=== PATIENT | female | born 1935 | race Caucasian/White ===

== ENCOUNTER → 2016-08-12 | Outpatient (CLI) | payer MEDICARE, BC ==
[~2016-08-12] MED LIST: ASCORBIC ACID500 M1 PO; CALCIUM 500 +1 EAC4 PO; COLACE10 MG/ML PO; COQ-10100 MG PO; DAILY VITE1 EAC1 PO; ENDOCET 5-3251 EACH PO; FIBER THERAPY0.52 GM PO; FIBERCON625 MG PO; FISH OIL 1,2001 EAC4 PO; FOSAMAX70 MG PO; GLUCOSAMINE-CH1 EA30 PO; HYDROCHLOROTHIA25 MG PO; K-DUR20 MEQ PO; LECITHIN-191200 MG PO; LO-DOSE ASPIRIN81 M2 PO; PHILLIPS' LAXA100 MG PO; TIZANIDINE HCL4 MG PO; TRAZODONE HCL50 MG PO; VITAMIN B122500 MCG PO; VITAMIN D31000 UNI2 PO; XANAX0.25 MG PO; ZINC50 M2 PO
== END | disposition home or self-care (01) ==
LOC: CDC 09:02
DX: I44.4 Left anterior fascicular block (principal); I51.7 Cardiomegaly; R94.31 Abnormal electrocardiogram [ECG] [EKG]; M43.16 Spondylolisthesis, lumbar region; M54.16 Radiculopathy, lumbar region
CPT/HCPCS: 93000

== ENCOUNTER 2016-08-13 13:02 | Inpatient (IN) | payer OTHER, BC ==
[~2016-08-13] VITALS: Ht 157.5 cm; Wt 59.9 kg
[~2016-08-13 13:02] MED LIST changes: -COLACE10 MG/ML PO; -PHILLIPS' LAXA100 MG PO
[2016-08-13] MEDS ORDERED: COLACE10 MG/ML PO (13:33)
[2016-08-13 13:35] VITALS: BP 147/68
[2016-08-13] MEDS ORDERED: PHILLIPS' LAXA100 MG PO (13:35)
[2016-08-13 22:00] VITALS: BP 170/78
[2016-08-14] VITALS (9 sets, daily range): BP systolic 111–163; BP diastolic 54–71
[2016-08-15 07:57] VITALS: BP 159/68
[2016-08-15 15:10] VITALS: BP 124/61
[2016-08-15 16:00] VITALS: BP 124/61
[2016-08-15] MEDS ORDERED: ENDOCET 5-3251 EACH PO (16:37)
[2016-08-15] MEDS ORDERED: TIZANIDINE HCL4 MG PO (16:37)
[2016-08-15 23:30] VITALS: BP 157/72
[2016-08-16 07:54] VITALS: BP 149/70
[2016-08-16 15:23] VITALS: BP 131/58
== END 2016-08-16 16:57 | DRG 460 ==
LOC: SDC 13:02 → 3EAST 20:48 → 2SOUTH 20:48 → 3EAST 21:55
DX: M43.16 Spondylolisthesis, lumbar region (principal); M51.16 Intervertebral disc disorders with radiculopathy, lumbar region; M48.06 Spinal stenosis, lumbar region; I10 Essential (primary) hypertension; E78.5 Hyperlipidemia, unspecified; M81.0 Age-related osteoporosis without current pathological fracture; F41.9 Anxiety disorder, unspecified; Z85.840 Personal history of malignant neoplasm of eye
CPT/HCPCS: 36415; 71010; 72100; 76000; 80048; 85025; 86850; 86900; 86901; 93000; 97530 GP; J0131; J0690; J1100; J1170; J1580; J2405; J2710; J2930; J3010; J3370; J3480; S0020

== ENCOUNTER 2017-06-11 13:15 | Emergency (ER) | payer OTHER, BC ==
[~2017-06-11] VITALS: Ht 157.5 cm; Wt 55.8 kg
[~2017-06-11 13:15] MED LIST changes: +COLACE10 MG/ML PO; +PHILLIPS' LAXA100 MG PO
[2017-06-11 14:19] LABS: HEMATOCRIT 37.1 % (36.0-46.0); HEMOGLOBIN 12.7 G/DL (11.9-15.5); MCHC 34.2 G/DL (30.0-36.0); MCV 84.7 FL (83-99); PLATELET COUNT 232 K/uL (156-360); RBC DIS.WIDTH-CV 12.2 % (11.8-14.6); RBC DIS.WIDTH-SD 37.3 % (39-53); RED BLOOD COUNT 4.38 M/uL (3.80-5.20); WHITE BLOOD COUNT 15.1 K/uL (4.1-10.2)
[2017-06-11 14:29] LABS: ALBUMIN 3.9 g/dL (3.2-4.8); CHLORIDE 99 mEq/L (99-109); POTASSIUM 3.4 mEq/L (3.7-5.4); SODIUM 134 mEq/L (136-147)
[2017-06-11 14:31] LABS: GLUCOSE 114 mg/dL (70-99)
[2017-06-11 14:32] LABS: TOTAL PROTEIN 7.1 g/dL (6.4-8.3)
[2017-06-11 14:33] LABS: TOTAL BILIRUBIN 0.9 mg/dL (0.0-1.0)
[2017-06-11 14:35] LABS: ALKALINE PHOSPHATASE 55 IU/L (3-129); GFR ESTIMATE (CALCULATED) 57 mL/min/
[2017-06-11 14:36] LABS: UREA NITROGEN (BUN) 22 mg/dL (9-23)
[2017-06-11 14:37] LABS: AST (GOT) 19 IU/L (2-34)
[2017-06-11 14:38] LABS: ALT (GPT) 14 IU/L (3-49)
[2017-06-11 16:40] LABS: LIPASE 26 U/L (1.0-51.0)
[2017-06-11 20:04] LABS: APPEARANCE CLEAR ((CLEAR)); BILIRUBIN NEGATIVE; BLOOD SMALL; COLOR STRAW ((YELLOW)); GLUCOSE (STRIP) 50; KETONES 20; LEUKOCYTES NEGATIVE; NITRITE NEGATIVE; PROTEIN (STRIP) 30; UROBILINOGEN 0.2 MG/DL (0.2-1.0)
[2017-06-11 20:08] LABS: BACTERIA NONE SEEN /HPF; EPITHELIAL CELLS RARE /HPF; MUCUS NONE SEEN /LPF; UCUL ADDED? NO; WHITE BLOOD CELLS 0-5 /HPF (0-5)
[2017-06-11 20:18] LABS: SPECIFIC GRAVITY 1.065 (1.000-1.030)
[2017-06-11] MEDS ORDERED: PERCOCET 5/31 TABLET PO (21:44)
[2017-06-11 23:00] VITALS: BP 184/92
== END 2017-06-11 23:00 | disposition home or self-care (01) ==
LOC: EME 13:15
DX: S32.000A Wedge compression fracture of unspecified lumbar vertebra, initial encounter for closed fracture (principal); R10.11 Right upper quadrant pain; W17.89XA Other fall from one level to another, initial encounter; Y93.89 Activity, other specified; I10 Essential (primary) hypertension; Z85.820 Personal history of malignant melanoma of skin; Z98.1 Arthrodesis status; Z88.5 Allergy status to narcotic agent; Z88.8 Allergy status to other drugs, medicaments and biological substances
CPT/HCPCS: 72128; 72132; 74177; 80053; 81003; 83690; 85027; 93005; 99281; 99285

== ENCOUNTER 2017-07-23 17:07 | Inpatient (IN) | payer OTHER, BC ==
[~2017-07-23] VITALS: Ht 157.5 cm; Wt 51.0 kg
[~2017-07-23 17:07] MED LIST changes: +CO Q-10200 MG PO; -COQ-10100 MG PO; +CYANOCOBALAM1000 MCG PO; +PERCOCET 5/31 TABLET PO; -VITAMIN B122500 MCG PO
[2017-07-23 19:12] LABS: HEMATOCRIT 38.9 % (36.0-46.0); HEMOGLOBIN 13.4 G/DL (11.9-15.5); MCH 28.9 PG (29.0-34.0); MCHC 34.4 G/DL (30.0-36.0); MCV 83.8 FL (83-99); PLATELET COUNT 303 K/uL (156-360); RBC DIS.WIDTH-CV 12.4 % (11.8-14.6); RBC DIS.WIDTH-SD 37.8 % (39-53); RED BLOOD COUNT 4.64 M/uL (3.80-5.20); WHITE BLOOD COUNT 11.2 K/uL (4.1-10.2)
[2017-07-23] MEDS ORDERED: PERCOCET 5/31 TABLET PO (19:16)
[2017-07-23] MEDS ORDERED: EXCEDRIN EXTRA1 EACH PO (19:19)
[2017-07-23] MEDS ORDERED: MOVANTIK12.5 MG PO (19:23)
[2017-07-23] MEDS ORDERED: FLUOXETINE HCL40 MG PO (19:23)
[2017-07-23] MEDS ORDERED: LISINOPRIL10 MG PO (19:23)
[2017-07-23] MEDS ORDERED: LIDODERM 5% P1 PATCH TD (19:23)
[2017-07-23 19:28] LABS: ALBUMIN 3.7 g/dL (3.2-4.8); CHLORIDE 90 mEq/L (99-109); POTASSIUM 3.4 mEq/L (3.7-5.4); SODIUM 133 mEq/L (136-147)
[2017-07-23 19:30] LABS: GLUCOSE 115 mg/dL (70-99)
[2017-07-23 19:31] LABS: TOTAL PROTEIN 6.6 g/dL (6.4-8.3)
[2017-07-23 19:32] LABS: TOTAL BILIRUBIN 0.5 mg/dL (0.0-1.0)
[2017-07-23 19:34] LABS: ALKALINE PHOSPHATASE 62 IU/L (3-129); CREATININE 0.7 mg/dL (0.6-1.3); GFR ESTIMATE (CALCULATED) > 59 mL/min/
[2017-07-23 19:35] LABS: UREA NITROGEN (BUN) 14 mg/dL (9-23)
[2017-07-23 19:36] LABS: AST (GOT) 15 IU/L (2-34)
[2017-07-23 19:37] LABS: ALT (GPT) 13 IU/L (3-49); CREATINE KINASE 32 IU/L (1-294)
[2017-07-23 19:46] LABS: TROP-I INTERPRETATION NEGATIVE; TROPONIN-I 0.02 ng/mL (0.0-0.30)
[2017-07-23 22:46] LABS: SERUM ETHYL ALCOHOL < 10 mg/dL
[2017-07-23 23:34] LABS: APPEARANCE CLOUDY ((CLEAR)); BILIRUBIN NEGATIVE; BLOOD NEGATIVE; COLOR YELLOW ((YELLOW)); GLUCOSE (STRIP) NEGATIVE; KETONES 5; LEUKOCYTES NEGATIVE; NITRITE NEGATIVE; PROTEIN (STRIP) 30; SPECIFIC GRAVITY 1.017 (1.000-1.030); UROBILINOGEN 0.2 MG/DL (0.2-1.0)
[2017-07-24] VITALS (12 sets, daily range): BP systolic 129–238; BP diastolic 68–111
[2017-07-24 00:50] LABS: BENZODIAZEPINES, URINE SCREEN Negative (200 ng/mL)
[2017-07-24 03:05] LABS: AMORPHOUS URATES CRYSTALS 3+; BACTERIA RARE /HPF; EPITHELIAL CELLS RARE /HPF; MUCUS NONE SEEN /LPF; RED BLOOD CELLS 0-5 /HPF (0-5); WHITE BLOOD CELLS 0-5 /HPF (0-5)
[2017-07-24 06:21] LABS: HDL CHOLESTEROL 48 MG/DL (Desirable>=50); LDL CHOLESTEROL 111 mg/dL (Desirable<100); NON-HDL CHOLESTEROL 132 mg/dL (Desirable<160); TOTAL CHOLESTEROL 180 mg/dL (Desirable<200); TRIGLYCERIDES 107 MG/DL (Normal: <150)
[2017-07-24 10:34] LABS: HEMOGLOBIN A1c (GLYCOHEMOGLOB) 5.6 % (Below 5.7)
[2017-07-25 00:05] VITALS: BP 139/84
[2017-07-25 05:06] VITALS: BP 160/71
[2017-07-25 07:33] VITALS: BP 156/75
[2017-07-25 11:30] VITALS: BP 108/53
[2017-07-25 11:45] LABS: HEMATOCRIT 36.9 % (36.0-46.0); HEMOGLOBIN 12.9 G/DL (11.9-15.5); MCH 29.3 PG (29.0-34.0); MCV 83.7 FL (83-99); PLATELET COUNT 320 K/uL (156-360); RBC DIS.WIDTH-CV 12.6 % (11.8-14.6); RBC DIS.WIDTH-SD 38.4 % (39-53); RED BLOOD COUNT 4.41 M/uL (3.80-5.20); WHITE BLOOD COUNT 20.3 K/uL (4.1-10.2)
[2017-07-25 12:11] LABS: CHLORIDE 93 MEQ/L (99-109); CREATININE 0.6 MG/DL (0.6-1.3); GFR ESTIMATE (CALCULATED) > 59 mL/min/; GLUCOSE 127 mg/dL (70-99); POTASSIUM 3.4 MEQ/L (3.7-5.4); SODIUM 131 MEQ/L (136-147); UREA NITROGEN (BUN) 16 mg/dL (9-23)
[2017-07-25 15:39] VITALS: BP 169/76
[2017-07-26 00:21] VITALS: BP 162/80
[2017-07-26 07:22] LABS: HEMATOCRIT 38.2 % (36.0-46.0); HEMOGLOBIN 12.9 G/DL (11.9-15.5); MCH 29.2 PG (29.0-34.0); MCHC 33.8 G/DL (30.0-36.0); MCV 86.4 FL (83-99); PLATELET COUNT 271 K/uL (156-360); RBC DIS.WIDTH-CV 12.7 % (11.8-14.6); RBC DIS.WIDTH-SD 39.8 % (39-53); RED BLOOD COUNT 4.42 M/uL (3.80-5.20)
[2017-07-26 07:49] LABS: CHLORIDE 95 MEQ/L (99-109); CREATININE 0.4 MG/DL (0.6-1.3); GFR ESTIMATE (CALCULATED) > 59 mL/min/; GLUCOSE 114 mg/dL (70-99); POTASSIUM 3.3 MEQ/L (3.7-5.4); SODIUM 132 MEQ/L (136-147); UREA NITROGEN (BUN) 9 mg/dL (9-23)
[2017-07-26 07:56] VITALS: BP 173/80
[2017-07-26 16:20] VITALS: BP 183/86
[2017-07-27] VITALS: BP 174/92
[2017-07-27 05:52] LABS: BASOPHIL (%) 0.3 % (0-1); BASOPHIL COUNT 0.1 K/uL (0-0.1); EOSINOPHIL (%) 0.1 % (0-5); HEMATOCRIT 38.4 % (36.0-46.0); HEMOGLOBIN 12.9 G/DL (11.9-15.5); IMMATURE GRANULOCYTE (%) 0.7 % (0.0-0.7); LYMPHOCYTE (%) 8.4 % (15-42); LYMPHOCYTE COUNT 1.3 K/uL (1.0-2.8); MCH 28.1 PG (29.0-34.0); MCHC 33.6 G/DL (30.0-36.0); MCV 83.7 FL (83-99); MONOCYTE (%) 7.5 % (3-12); MONOCYTE COUNT 1.2 K/uL (0-0.8); NEUTROPHIL COUNT 13.2 K/uL (1.8-6.4); PLATELET COUNT 290 K/uL (156-360); RBC DIS.WIDTH-CV 12.6 % (11.8-14.6); RBC DIS.WIDTH-SD 38.1 % (39-53); RED BLOOD COUNT 4.59 M/uL (3.80-5.20); WHITE BLOOD COUNT 15.9 K/uL (4.1-10.2)
[2017-07-27 06:28] LABS: CHLORIDE 96 MEQ/L (99-109); CREATININE 0.5 MG/DL (0.6-1.3); GFR ESTIMATE (CALCULATED) > 59 mL/min/; GLUCOSE 111 mg/dL (70-99); MAGNESIUM 1.9 mg/dl (1.3-2.7); POTASSIUM 3.9 MEQ/L (3.7-5.4); SODIUM 132 MEQ/L (136-147); UREA NITROGEN (BUN) 13 mg/dL (9-23)
[2017-07-27 07:49] VITALS: BP 136/74
[2017-07-27 15:50] VITALS: BP 140/72
[2017-07-28 00:01] VITALS: BP 138/77
[2017-07-28 08:16] VITALS: BP 174/83
[2017-07-28 09:33] LABS: BASOPHIL (%) 0.4 % (0-1); BASOPHIL COUNT 0.1 K/uL (0-0.1); EOSINOPHIL (%) 0.1 % (0-5); HEMATOCRIT 38.6 % (36.0-46.0); HEMOGLOBIN 12.7 G/DL (11.9-15.5); IMMATURE GRANULOCYTE (%) 0.8 % (0.0-0.7); LYMPHOCYTE (%) 6.7 % (15-42); LYMPHOCYTE COUNT 0.8 K/uL (1.0-2.8); MCH 27.9 PG (29.0-34.0); MCHC 32.9 G/DL (30.0-36.0); MCV 84.8 FL (83-99); MONOCYTE (%) 5.3 % (3-12); MONOCYTE COUNT 0.7 K/uL (0-0.8); NEUTROPHIL (%) 86.7 % (45-76); NEUTROPHIL COUNT 10.8 K/uL (1.8-6.4); PLATELET COUNT 322 K/uL (156-360); RBC DIS.WIDTH-SD 39.9 % (39-53); RED BLOOD COUNT 4.55 M/uL (3.80-5.20); WHITE BLOOD COUNT 12.4 K/uL (4.1-10.2)
[2017-07-28 09:58] LABS: CHLORIDE 98 MEQ/L (99-109); CREATININE 0.5 MG/DL (0.6-1.3); GFR ESTIMATE (CALCULATED) > 59 mL/min/; GLUCOSE 158 mg/dL (70-99); MAGNESIUM 1.9 mg/dl (1.3-2.7); POTASSIUM 4.2 MEQ/L (3.7-5.4); SODIUM 134 MEQ/L (136-147); UREA NITROGEN (BUN) 22 mg/dL (9-23)
[2017-07-28 12:05] VITALS: BP 158/72
[2017-07-28 16:00] VITALS: BP 160/70
[2017-07-28 23:51] VITALS: BP 131/65
[2017-07-29 07:21] VITALS: BP 144/79
[2017-07-29] MEDS ORDERED: NIFEDIPINE10 MG PO (11:54)
[2017-07-29] MEDS ORDERED: LISINOPRIL40 MG PO (11:54)
[2017-07-29] MEDS ORDERED: ASPIRIN EC325 MG PO (11:55)
[2017-07-29] MEDS ORDERED: ALPRAZOLAM0.25 M2 PO (11:56)
[2017-07-29 16:04] VITALS: BP 154/77
[2017-07-29 23:22] LABS: ALBUMIN 3.6 g/dL (3.2-4.8)
[2017-07-29 23:27] LABS: ALKALINE PHOSPHATASE 64 IU/L (3-129)
[2017-07-29 23:30] LABS: DIRECT BILIRUBIN 0.2 mg/dL (0.0-0.3)
[2017-07-29 23:31] LABS: LIPASE 72 U/L (1.0-51.0)
[2017-07-29 23:39] LABS: ALT (GPT) 57 IU/L (3-49); AST (GOT) 44 IU/L (2-34); TOTAL BILIRUBIN 0.3 mg/dL (0.0-1.0)
[2017-07-30] VITALS: BP 133/73
[2017-07-30 08:16] VITALS: BP 165/77
[2017-07-30 11:48] VITALS: BP 128/68
== END 2017-07-30 15:20 | DRG 92 ==
LOC: EME 17:07 → EDOF 21:18 → 5WEST 21:18 → 4EAST 21:18 → EDOF 21:18 → ENRESERV 21:24 → 5WEST 23:29 → ENRESERV 07-24 00:40 → 5WEST 07-24 00:41 → ENRESERV 07-24 00:51 → 4EAST 07-24 01:06 → 5SOUTH 07-25 11:47 → 4EAST 07-25 11:47 → ENRESERV 07-25 13:46 → 5SOUTH 07-25 15:21
PROVIDERS: Emergency Medicine; Family Medicine; Hospitalist; Physician Assistant; Physician Assistant Medical
DX: G92 Toxic encephalopathy (principal); T50.905A Adverse effect of unspecified drugs, medicaments and biological substances, initial encounter; J90 Pleural effusion, not elsewhere classified; E86.0 Dehydration; M25.551 Pain in right hip; G20 Parkinson's disease; R47.02 Dysphasia; E87.8 Other disorders of electrolyte and fluid balance, not elsewhere classified; R47.1 Dysarthria and anarthria; K21.9 Gastro-esophageal reflux disease without esophagitis; R29.6 Repeated falls; R68.2 Dry mouth, unspecified; I10 Essential (primary) hypertension; E78.5 Hyperlipidemia, unspecified; M54.5 Low back pain; M16.11 Unilateral primary osteoarthritis, right hip; G89.29 Other chronic pain; R13.10 Dysphagia, unspecified; R26.81 Unsteadiness on feet; E87.1 Hypo-osmolality and hyponatremia; R09.02 Hypoxemia; E87.6 Hypokalemia; R53.83 Other fatigue; F01.50 Vascular dementia, unspecified severity, without behavioral disturbance, psychotic disturbance, mood disturbance, and anxiety; K56.41 Fecal impaction; D72.829 Elevated white blood cell count, unspecified; H46.8 Other optic neuritis; M81.0 Age-related osteoporosis without current pathological fracture; R41.9 Unspecified symptoms and signs involving cognitive functions and awareness; R29.703 NIHSS score 3; Z79.83 Long term (current) use of bisphosphonates; Z79.899 Other long term (current) drug therapy; Z90.710 Acquired absence of both cervix and uterus; Z91.81 History of falling; Z86.010 Personal history of colon polyps
CPT/HCPCS: 70450; 70490; 70551; 71046; 73502; 74018; 74176; 80048; 80053; 80061; 80076; 80306 90; 81003; 82550; 82948; 83036; 83605; 83690; 83735; 84484; 85025; 85027; 87040; 92610 GN; 93005; 94799; 95819; 97530 GO; 97530 GP; 99281; 99285; G0378; G0480; G8978 GP CM; G8979 CJ; G8987 CK; G8988 GO CJ; G8996 GN CJ; G9161 GN CH; J0360; J1644; J2310; J7030; J7040

== ENCOUNTER 2017-08-27 07:16 | Inpatient (IN) | payer OTHER, BC ==
[~2017-08-27] VITALS: Ht 157.5 cm; Wt 69.1 kg
[2017-08-27] VITALS (14 sets, daily range): BP systolic 60–169; BP diastolic 30–75
[~2017-08-27 07:16] MED LIST changes: +ALPRAZOLAM0.25 M2 PO; +ASPIRIN EC325 MG PO; +EXCEDRIN EXTRA1 EACH PO; +FLUOXETINE HCL40 MG PO; +LIDODERM 5% P1 PATCH TD; +LISINOPRIL10 MG PO; +LISINOPRIL40 MG PO; +MOVANTIK12.5 MG PO; +NIFEDIPINE10 MG PO
[2017-08-27 07:34] LABS: BASOPHIL (%) 0.3 % (0-1); BASOPHIL COUNT 0.1 K/uL (0-0.1); EOSINOPHIL (%) 0 % (0-5); HEMATOCRIT 34.4 % (36.0-46.0); HEMOGLOBIN 11.7 G/DL (11.9-15.5); LYMPHOCYTE COUNT 0.3 K/uL (1.0-2.8); MCH 29.2 PG (29.0-34.0); MCV 85.8 FL (83-99); MONOCYTE (%) 4.4 % (3-12); MONOCYTE COUNT 0.7 K/uL (0-0.8); NEUTROPHIL (%) 92.3 % (45-76); NEUTROPHIL COUNT 15.5 K/uL (1.8-6.4); PLATELET COUNT 261 K/uL (156-360); RBC DIS.WIDTH-CV 12.7 % (11.8-14.6); RBC DIS.WIDTH-SD 39.8 % (39-53); RED BLOOD COUNT 4.01 M/uL (3.80-5.20); WHITE BLOOD COUNT 16.8 K/uL (4.1-10.2)
[2017-08-27 07:41] LABS: PTT 23.5 SEC (25-37)
[2017-08-27 07:45] LABS: ALBUMIN 3.7 g/dL (3.2-4.8); CHLORIDE 101 mEq/L (99-109); POTASSIUM 3.2 mEq/L (3.7-5.4); SODIUM 140 mEq/L (136-147)
[2017-08-27 07:47] LABS: GLUCOSE 138 mg/dL (70-99); TOTAL PROTEIN 6.4 g/dL (6.4-8.3)
[2017-08-27 07:49] LABS: TOTAL BILIRUBIN 0.4 mg/dL (0.0-1.0)
[2017-08-27 07:51] LABS: ALKALINE PHOSPHATASE 57 IU/L (3-129); CREATININE 0.8 mg/dL (0.6-1.3); GFR ESTIMATE (CALCULATED) > 59 mL/min/
[2017-08-27 07:52] LABS: AST (GOT) 22 IU/L (2-34); TROP-I INTERPRETATION NEGATIVE; TROPONIN-I 0.04 ng/mL (0.0-0.30); UREA NITROGEN (BUN) 28 mg/dL (9-23)
[2017-08-27 07:54] LABS: ALT (GPT) 15 IU/L (3-49)
[2017-08-27 07:57] LABS: BASE EXCESS 6.8 mEq/L (-3 to +3); BICARBONATE 30.3 mEq/L (22-26); CARBOXY HGB 1.4 % (0-5); METHEMOGLOBIN 1.3 % (0-1.5); PCO2 38 mm Hg (35-45); PO2 284 mm Hg (80-100); pH 7.51 (7.35-7.45)
[2017-08-27 07:59] LABS: COMMENTS - BLOOD GASES A+C+; DEVICE VENT; FI02 70 %; MECHANICAL RATE 18 resp/min; MODE ACVC; PEEP 7 CM/H20; SITE RR; TIDAL VOLUME 400 ML; TOTAL RESP RATE 19 resp/min
[2017-08-27] MEDS ORDERED: TYLENOL REGULA325 MG PO (09:44)
[2017-08-27] MEDS ORDERED: XANAX0.25 MG PO (09:45)
[2017-08-27] MEDS ORDERED: PROMETHAZINE HC25 M1 PO (09:47)
[2017-08-27] MEDS ORDERED: FIBER TABS625 MG PO (09:49)
[2017-08-27] MEDS ORDERED: SINEMET 25-1001 EACH PO (09:51)
[2017-08-27] MEDS ORDERED: PROCARDIA20 MG PO (09:54)
[2017-08-27] MEDS ORDERED: PROCARDIA10 MG PO (09:54)
[2017-08-27] MEDS ORDERED: ZESTRIL10 MG PO (09:56)
[2017-08-27] MEDS ORDERED: MIRALAX17 GM PO (09:56)
[2017-08-27 18:11] LABS: BASOPHIL (%) 0.1 % (0-1); EOSINOPHIL (%) 0 % (0-5); HEMATOCRIT 27.1 % (36.0-46.0); IMMATURE GRANULOCYTE (%) 0.8 % (0.0-0.7); LYMPHOCYTE (%) 3.3 % (15-42); LYMPHOCYTE COUNT 0.5 K/uL (1.0-2.8); MCH 29.2 PG (29.0-34.0); MCHC 33.2 G/DL (30.0-36.0); MONOCYTE (%) 9.2 % (3-12); MONOCYTE COUNT 1.5 K/uL (0-0.8); NEUTROPHIL (%) 86.6 % (45-76); NEUTROPHIL COUNT 14.2 K/uL (1.8-6.4); PLATELET COUNT 206 K/uL (156-360); RBC DIS.WIDTH-CV 13.2 % (11.8-14.6); RBC DIS.WIDTH-SD 42.3 % (39-53); RED BLOOD COUNT 3.08 M/uL (3.80-5.20); WHITE BLOOD COUNT 16.4 K/uL (4.1-10.2)
[2017-08-27 18:11] LABS: TROP-I INTERPRETATION NEGATIVE; TROPONIN-I 0.21 ng/mL (0.0-0.30)
[2017-08-27 19:06] LABS: ALBUMIN 2.6 G/DL (3.2-4.8); ALKALINE PHOSPHATASE 36 IU/L (3-129); ALT (GPT) 16 IU/L (3-49); AST (GOT) 22 IU/L (2-34); CHLORIDE 107 MEQ/L (99-109); CREATINE KINASE 258 IU/L (1-294); CREATININE 0.8 MG/DL (0.6-1.3); GFR ESTIMATE (CALCULATED) > 59 mL/min/; GLUCOSE 164 mg/dL (70-99); MAGNESIUM 1.4 mg/dl (1.3-2.7); PHOSPHORUS 2.7 mg/dL (2.5-4.9); POTASSIUM 3.4 MEQ/L (3.7-5.4); SODIUM 142 MEQ/L (136-147); TOTAL BILIRUBIN 0.7 MG/DL (0.0-1.0); TRIGLYCERIDES 105 MG/DL (Normal: <150); UREA NITROGEN (BUN) 22 mg/dL (9-23)
[2017-08-28] VITALS (15 sets, daily range): BP systolic 81–133; BP diastolic 41–92
[2017-08-28 05:40] LABS: BASOPHIL (%) 0.2 % (0-1); EOSINOPHIL (%) 0 % (0-5); HEMATOCRIT 24.8 % (36.0-46.0); HEMOGLOBIN 8.4 G/DL (11.9-15.5); IMMATURE GRANULOCYTE (%) 0.8 % (0.0-0.7); LYMPHOCYTE (%) 2.6 % (15-42); LYMPHOCYTE COUNT 0.6 K/uL (1.0-2.8); MCH 29.2 PG (29.0-34.0); MCHC 33.9 G/DL (30.0-36.0); MCV 86.1 FL (83-99); MONOCYTE (%) 6.7 % (3-12); MONOCYTE COUNT 1.5 K/uL (0-0.8); NEUTROPHIL (%) 89.7 % (45-76); NEUTROPHIL COUNT 20.1 K/uL (1.8-6.4); PLATELET COUNT 201 K/uL (156-360); RBC DIS.WIDTH-CV 13.2 % (11.8-14.6); RBC DIS.WIDTH-SD 41.4 % (39-53); RED BLOOD COUNT 2.88 M/uL (3.80-5.20); WHITE BLOOD COUNT 22.3 K/uL (4.1-10.2)
[2017-08-28 06:08] LABS: ALBUMIN 2.4 G/DL (3.2-4.8); ALKALINE PHOSPHATASE 36 IU/L (3-129); ALT (GPT) 13 IU/L (3-49); AST (GOT) 20 IU/L (2-34); CHLORIDE 114 MEQ/L (99-109); CREATINE KINASE 271 IU/L (1-294); CREATININE 0.7 MG/DL (0.6-1.3); GFR ESTIMATE (CALCULATED) > 59 mL/min/; GLUCOSE 132 mg/dL (70-99); MAGNESIUM 1.3 mg/dl (1.3-2.7); PHOSPHORUS 2.4 mg/dL (2.5-4.9); POTASSIUM 3.1 MEQ/L (3.7-5.4); SODIUM 141 MEQ/L (136-147); TOTAL PROTEIN 4.5 G/DL (6.4-8.3); UREA NITROGEN (BUN) 21 mg/dL (9-23)
[2017-08-28 06:15] LABS: TOTAL BILIRUBIN 0.5 MG/DL (0.0-1.0)
[2017-08-28 20:33] LABS: HIGH-SENS C-REACTIVE PROTEIN > 8.00 MG/DL (0.02-0.20)
[2017-08-29] VITALS (14 sets, daily range): BP systolic 90–149; BP diastolic 36–58
[2017-08-29 05:30] LABS: MAGNESIUM 2.2 mg/dL (1.3-2.7)
[2017-08-29 06:16] LABS: BASOPHIL (%) 0.1 % (0-1); EOSINOPHIL (%) 0 % (0-5); HEMATOCRIT 19.9 % (36.0-46.0); IMMATURE GRANULOCYTE (%) 1.1 % (0.0-0.7); LYMPHOCYTE COUNT 0.5 K/uL (1.0-2.8); MCH 28.9 PG (29.0-34.0); MCHC 32.7 G/DL (30.0-36.0); MCV 88.4 FL (83-99); MONOCYTE (%) 5.4 % (3-12); MONOCYTE COUNT 0.9 K/uL (0-0.8); NEUTROPHIL (%) 90.4 % (45-76); NEUTROPHIL COUNT 14.9 K/uL (1.8-6.4); RBC DIS.WIDTH-CV 13.9 % (11.8-14.6); RBC DIS.WIDTH-SD 44.8 % (39-53); RED BLOOD COUNT 2.25 M/uL (3.80-5.20); WHITE BLOOD COUNT 16.5 K/uL (4.1-10.2)
[2017-08-29 06:17] LABS: HEMOGLOBIN 6.5 G/DL (11.9-15.5)
[2017-08-29 06:26] LABS: ALBUMIN 2.1 G/DL (3.2-4.8); ALKALINE PHOSPHATASE 43 IU/L (3-129); ALT (GPT) 4 IU/L (3-49); AST (GOT) 17 IU/L (2-34); CHLORIDE 122 MEQ/L (99-109); CREATINE KINASE 386 IU/L (1-294); CREATININE 0.5 MG/DL (0.6-1.3); GFR ESTIMATE (CALCULATED) > 59 mL/min/; GLUCOSE 140 mg/dL (70-99); SODIUM 147 MEQ/L (136-147); TOTAL BILIRUBIN 0.5 MG/DL (0.0-1.0); TOTAL PROTEIN 3.9 G/DL (6.4-8.3); UREA NITROGEN (BUN) 20 mg/dL (9-23)
[2017-08-29 06:42] LABS: PLAT.SUFFICIENCY DECREASED; PLATELET COUNT 154 K/uL (156-360)
[2017-08-29 06:43] LABS: HIGH-SENS C-REACTIVE PROTEIN > 8.00 MG/DL (0.02-0.20)
[2017-08-29 17:01] LABS: HEMATOCRIT 26.2 % (36.0-46.0); MCV 85.3 FL (83-99); PLATELET COUNT 140 K/uL (156-360); RBC DIS.WIDTH-CV 15.2 % (11.8-14.6); WHITE BLOOD COUNT 17.1 K/uL (4.1-10.2)
[2017-08-29 17:02] LABS: HEMOGLOBIN 8.9 G/DL (11.9-15.5); RED BLOOD COUNT 3.07 M/uL (3.80-5.20)
[2017-08-30] VITALS (13 sets, daily range): BP systolic 91–197; BP diastolic 41–80
[2017-08-30 05:07] LABS: BASOPHIL (%) 0.2 % (0-1); EOSINOPHIL (%) 0.1 % (0-5); HEMATOCRIT 23.9 % (36.0-46.0); HEMOGLOBIN 8.4 G/DL (11.9-15.5); IMMATURE GRANULOCYTE (%) 0.7 % (0.0-0.7); LYMPHOCYTE (%) 4.1 % (15-42); LYMPHOCYTE COUNT 0.5 K/uL (1.0-2.8); MCH 29.4 PG (29.0-34.0); MCHC 35.1 G/DL (30.0-36.0); MCV 83.6 FL (83-99); MONOCYTE COUNT 0.6 K/uL (0-0.8); NEUTROPHIL (%) 89.9 % (45-76); NEUTROPHIL COUNT 10.6 K/uL (1.8-6.4); PLATELET COUNT 137 K/uL (156-360); RBC DIS.WIDTH-CV 15.7 % (11.8-14.6); RBC DIS.WIDTH-SD 47.8 % (39-53); RED BLOOD COUNT 2.86 M/uL (3.80-5.20); WHITE BLOOD COUNT 11.8 K/uL (4.1-10.2)
[2017-08-30 05:29] LABS: ALBUMIN 2.4 g/dL (3.2-4.8); POTASSIUM 3.1 mEq/L (3.7-5.4); SODIUM 144 mEq/L (136-147)
[2017-08-30 05:31] LABS: GLUCOSE 134 mg/dL (70-99)
[2017-08-30 05:35] LABS: CREATININE 0.6 mg/dL (0.6-1.3); GFR ESTIMATE (CALCULATED) > 59 mL/min/; PHOSPHORUS 2.6 mg/dL (2.5-4.9)
[2017-08-30 05:36] LABS: AST (GOT) 25 IU/L (2-34); UREA NITROGEN (BUN) 18 mg/dL (9-23)
[2017-08-30 05:38] LABS: ALT (GPT) 5 IU/L (3-49); CREATINE KINASE 326 IU/L (1-294)
[2017-08-30 05:39] LABS: ALKALINE PHOSPHATASE 146 IU/L (3-129); CHLORIDE 117 mEq/L (99-109); MAGNESIUM 1.6 mg/dL (1.3-2.7); TOTAL BILIRUBIN 0.9 mg/dL (0.0-1.0); TOTAL PROTEIN 3.8 g/dL (6.4-8.3)
[2017-08-31] VITALS (14 sets, daily range): BP systolic 98–136; BP diastolic 40–63
[2017-08-31 06:09] LABS: BASOPHIL (%) 0.3 % (0-1); EOSINOPHIL (%) 0.9 % (0-5); EOSINOPHIL COUNT 0.1 K/uL (0-0.3); HEMATOCRIT 24.9 % (36.0-46.0); HEMOGLOBIN 8.1 G/DL (11.9-15.5); IMMATURE GRANULOCYTE (%) 0.7 % (0.0-0.7); LYMPHOCYTE (%) 3.4 % (15-42); LYMPHOCYTE COUNT 0.4 K/uL (1.0-2.8); MCH 28.4 PG (29.0-34.0); MCHC 32.5 G/DL (30.0-36.0); MCV 87.4 FL (83-99); MONOCYTE (%) 5.4 % (3-12); MONOCYTE COUNT 0.6 K/uL (0-0.8); NEUTROPHIL (%) 89.3 % (45-76); NEUTROPHIL COUNT 9.8 K/uL (1.8-6.4); PLATELET COUNT 157 K/uL (156-360); RBC DIS.WIDTH-SD 50.7 % (39-53); RED BLOOD COUNT 2.85 M/uL (3.80-5.20)
[2017-08-31 06:31] LABS: ALBUMIN 2.5 G/DL (3.2-4.8); ALKALINE PHOSPHATASE 130 IU/L (3-129); ALT (GPT) 9 IU/L (3-49); AST (GOT) 20 IU/L (2-34); CHLORIDE 113 MEQ/L (99-109); CREATINE KINASE 191 IU/L (1-294); CREATININE 0.6 MG/DL (0.6-1.3); GFR ESTIMATE (CALCULATED) > 59 mL/min/; GLUCOSE 129 mg/dL (70-99); MAGNESIUM 1.8 mg/dl (1.3-2.7); PHOSPHORUS 2.8 mg/dL (2.5-4.9); POTASSIUM 3.1 MEQ/L (3.7-5.4); SODIUM 144 MEQ/L (136-147); TOTAL BILIRUBIN 0.5 MG/DL (0.0-1.0); TOTAL PROTEIN 4.2 G/DL (6.4-8.3); UREA NITROGEN (BUN) 17 mg/dL (9-23)
[2017-09-01 04:40] LABS: BASOPHIL (%) 0.2 % (0-1); EOSINOPHIL (%) 0.8 % (0-5); EOSINOPHIL COUNT 0.1 K/uL (0-0.3); HEMATOCRIT 26.6 % (36.0-46.0); HEMOGLOBIN 8.9 G/DL (11.9-15.5); IMMATURE GRANULOCYTE (%) 0.8 % (0.0-0.7); LYMPHOCYTE (%) 2.5 % (15-42); LYMPHOCYTE COUNT 0.3 K/uL (1.0-2.8); MCH 28.8 PG (29.0-34.0); MCHC 33.5 G/DL (30.0-36.0); MCV 86.1 FL (83-99); MONOCYTE (%) 5.4 % (3-12); MONOCYTE COUNT 0.6 K/uL (0-0.8); NEUTROPHIL (%) 90.3 % (45-76); NEUTROPHIL COUNT 9.6 K/uL (1.8-6.4); PLATELET COUNT 172 K/uL (156-360); RBC DIS.WIDTH-CV 15.7 % (11.8-14.6); RBC DIS.WIDTH-SD 49.5 % (39-53); RED BLOOD COUNT 3.09 M/uL (3.80-5.20); WHITE BLOOD COUNT 10.6 K/uL (4.1-10.2)
[2017-09-01 04:50] LABS: CHLORIDE 115 mEq/L (99-109); SODIUM 145 mEq/L (136-147)
[2017-09-01 04:51] LABS: ALBUMIN 2.5 g/dL (3.2-4.8); MAGNESIUM 1.5 mg/dL (1.3-2.7); POTASSIUM 4.1 mEq/L (3.7-5.4)
[2017-09-01 04:53] LABS: GLUCOSE 174 mg/dL (70-99); TOTAL PROTEIN 4.2 g/dL (6.4-8.3)
[2017-09-01 04:56] LABS: PHOSPHORUS 1.8 mg/dL (2.5-4.9)
[2017-09-01 04:57] LABS: ALKALINE PHOSPHATASE 143 IU/L (3-129); CREATININE 0.6 mg/dL (0.6-1.3); GFR ESTIMATE (CALCULATED) > 59 mL/min/; TOTAL BILIRUBIN 0.3 mg/dL (0.0-1.0)
[2017-09-01 04:58] LABS: AST (GOT) 17 IU/L (2-34); UREA NITROGEN (BUN) 15 mg/dL (9-23)
[2017-09-01 05:00] LABS: ALT (GPT) 9 IU/L (3-49)
[2017-09-01 07:00] VITALS: BP 118/46
[2017-09-01 12:00] VITALS: BP 116/51
[2017-09-01 19:00] VITALS: BP 132/48
[2017-09-01 20:00] VITALS: BP 118/50
[2017-09-02] VITALS (7 sets, daily range): BP systolic 97–140; BP diastolic 49–60
[2017-09-02 05:27] LABS: BASOPHIL (%) 0.2 % (0-1); EOSINOPHIL COUNT 0.1 K/uL (0-0.3); HEMATOCRIT 25.2 % (36.0-46.0); HEMOGLOBIN 8.4 G/DL (11.9-15.5); IMMATURE GRANULOCYTE (%) 2.4 % (0.0-0.7); LYMPHOCYTE COUNT 0.5 K/uL (1.0-2.8); MCH 28.7 PG (29.0-34.0); MCHC 33.3 G/DL (30.0-36.0); MONOCYTE (%) 5.8 % (3-12); MONOCYTE COUNT 0.7 K/uL (0-0.8); NEUTROPHIL (%) 86.6 % (45-76); NEUTROPHIL COUNT 9.7 K/uL (1.8-6.4); PLATELET COUNT 195 K/uL (156-360); RBC DIS.WIDTH-CV 15.4 % (11.8-14.6); RBC DIS.WIDTH-SD 48.7 % (39-53); RED BLOOD COUNT 2.93 M/uL (3.80-5.20); WHITE BLOOD COUNT 11.2 K/uL (4.1-10.2)
[2017-09-02 05:58] LABS: ALBUMIN 2.1 G/DL (3.2-4.8); ALT (GPT) 9 IU/L (3-49); AST (GOT) 13 IU/L (2-34); CHLORIDE 107 MEQ/L (99-109); CREATININE 0.4 MG/DL (0.6-1.3); GFR ESTIMATE (CALCULATED) > 59 mL/min/; GLUCOSE 146 mg/dL (70-99); PHOSPHORUS 2.7 mg/dL (2.5-4.9); SODIUM 144 MEQ/L (136-147); TOTAL PROTEIN 4.1 G/DL (6.4-8.3); UREA NITROGEN (BUN) 17 mg/dL (9-23)
[2017-09-02 06:03] LABS: ALKALINE PHOSPHATASE 82 IU/L (3-129); MAGNESIUM 1.4 mg/dl (1.3-2.7); POTASSIUM 2.8 MEQ/L (3.7-5.4); TOTAL BILIRUBIN 0.3 MG/DL (0.0-1.0)
[2017-09-03] VITALS (7 sets, daily range): BP systolic 131–158; BP diastolic 52–80
[2017-09-03 05:34] LABS: ALBUMIN 2.6 g/dL (3.2-4.8); CHLORIDE 105 mEq/L (99-109); POTASSIUM 3.1 mEq/L (3.7-5.4); SODIUM 146 mEq/L (136-147)
[2017-09-03 05:35] LABS: MAGNESIUM 1.9 mg/dL (1.3-2.7)
[2017-09-03 05:36] LABS: GLUCOSE 167 mg/dL (70-99)
[2017-09-03 05:37] LABS: TOTAL PROTEIN 4.4 g/dL (6.4-8.3)
[2017-09-03 05:38] LABS: TOTAL BILIRUBIN 0.3 mg/dL (0.0-1.0)
[2017-09-03 05:40] LABS: CREATININE 0.6 mg/dL (0.6-1.3); GFR ESTIMATE (CALCULATED) > 59 mL/min/
[2017-09-03 05:41] LABS: HEMATOCRIT 25.9 % (36.0-46.0); HEMOGLOBIN 8.7 G/DL (11.9-15.5); MCH 28.9 PG (29.0-34.0); MCHC 33.6 G/DL (30.0-36.0); PLATELET COUNT 235 K/uL (156-360); RBC DIS.WIDTH-CV 15.2 % (11.8-14.6); RED BLOOD COUNT 3.01 M/uL (3.80-5.20); UREA NITROGEN (BUN) 24 mg/dL (9-23); WHITE BLOOD COUNT 10.2 K/uL (4.1-10.2)
[2017-09-03 05:42] LABS: AST (GOT) 18 IU/L (2-34)
[2017-09-03 05:43] LABS: ALT (GPT) 11 IU/L (3-49)
[2017-09-03 05:56] LABS: ALKALINE PHOSPHATASE 96 IU/L (3-129); PHOSPHORUS 2.7 mg/dL (2.5-4.9)
[2017-09-03 07:38] LABS: ABS NEUTROPHIL COUNT 9.3; ANISOCYTOSIS 1+; EOSINOPHIL ABS CT 0.1; EOSINOPHILS 0.9 % (0-5.0); LYMPHOCYTES 6.4 % (15.0-45.0); METAMYELOCYTES 0.9 %; MICROCYTOSIS 1+; MONOCYTES 0.9 % (0-9.0); SEG.NEUTROPHILS 80.9 % (46.0-76.0)
[2017-09-04] VITALS (22 sets, daily range): BP systolic 105–175; BP diastolic 42–82
[2017-09-04 14:30] LABS: C DIFF TOXIN POSITIVE (NEGATIVE)
[2017-09-05] VITALS (12 sets, daily range): BP systolic 111–154; BP diastolic 40–63
[2017-09-06] VITALS (19 sets, daily range): BP systolic 99–147; BP diastolic 40–69
[2017-09-08 18:00] VITALS: BP 114/48
[2017-09-08 19:00] VITALS: BP 116/47
[2017-09-08 21:00] VITALS: BP 126/54
[2017-09-08 22:00] VITALS: BP 119/50
[2017-09-08 23:00] VITALS: BP 106/46
[2017-09-09] VITALS (8 sets, daily range): BP systolic 112–157; BP diastolic 46–65
== END 2017-09-09 11:41 | disposition hospice, home (50) | DRG 25 ==
LOC: EME 07:16 → EDOF 09:09 → 4WEST 09:09 → ENRESERV 09:11 → 4WEST 10:45
PROVIDERS: Emergency Medicine; Internal Medicine; Internal Medicine Critical Care Medicine; Specialist
DX: I62.01 Nontraumatic acute subdural hemorrhage (principal); J96.01 Acute respiratory failure with hypoxia; J96.02 Acute respiratory failure with hypercapnia; R40.20 Unspecified coma; G93.40 Encephalopathy, unspecified; J69.0 Pneumonitis due to inhalation of food and vomit; A04.72 Enterocolitis due to Clostridium difficile, not specified as recurrent; I61.9 Nontraumatic intracerebral hemorrhage, unspecified; G93.6 Cerebral edema; E83.39 Other disorders of phosphorus metabolism; G93.89 Other specified disorders of brain; I95.9 Hypotension, unspecified; I10 Essential (primary) hypertension; D64.9 Anemia, unspecified; E78.5 Hyperlipidemia, unspecified; G20 Parkinson's disease; G89.29 Other chronic pain; R40.2430 Glasgow coma scale score 3-8, unspecified time; Z66 Do not resuscitate; Z98.1 Arthrodesis status; Z85.820 Personal history of malignant melanoma of skin
CPT/HCPCS: 36600; 70450; 71045; 71275; 73502; 74176; 80053; 80202; 82550; 82550 91; 82803; 82948; 83605; 83735; 83880; 84100; 84145 90; 84478; 84484; 85025; 85025 91; 85027; 85610; 85730; 86141; 86850; 86900; 86901; 86920; 87040; 87070; 87205; 87493; 87641; 88304; 93005; 94002; 94003; 94640; 94640 76; 94644; 94760; 95819; 99202; 99281; 99285; C1713; C1751; C1788; C1894; C9113; J0330; J0690; J1100; J1940; J1953; J2250; J2370; J2405; J2543; J2704; J3010; J3370; J3475; J3480; J7030; J7040; J7050; J7120; P9016; P9045